=== PATIENT | female | born 1975 | race Caucasian/White ===

== ENCOUNTER 2017-10-16 03:49 | Inpatient (IN) | payer OTHER ==
[2017-10-16] VITALS (8 sets, daily range): BP systolic 91–110; BP diastolic 35–70
[~2017-10-16] VITALS: Ht 167.6 cm; Wt 57.6 kg
[~2017-10-16 03:49] MED LIST: AMOXICILLIN500 MG PO; ANAPROX DS550 MG PO; ATIVAN0.5 MG PO; BENZTROPINE1 MG PO; BRIN10TA PO; CATAFLAM50 MG PO; CELEXA10 MG PO; CELEXA20 MG PO; CIPRO250 MG PO; COGENTIN1 MG PO; DAYPRO600 M1 PO; FLEXERIL10 MG PO; HALDOL1 MG PO; HALDOL2 MG PO; HYDROCODONE BIT1 T11 PO; KEFLEX500 MG PO; MACROBID100 M1 PO; MOTRIN800 MG PO; NKHM PO; NORCO 325 MG-51 TAB PO; PHENERGAN25 M1 PO; PRENATAL1 TA1 PO; PYRIDIUM200 MG PO; ROBAXIN750 MG PO; TOBREX OPHTH S2.5 ML OPH; TOPAMAX50 MG PO; TRAZODONE HCL100 MG PO; ULTRAM50 MG PO; VALIUM10 MG PO; VICODIN 5/500 505 MG PO; VICODIN 500 MG-1 TAB PO; VISTARIL25 M1 PO; Vicodin 5/500 505 MG PO; ZITHROMAX Z PA250 MG PO; [UNRECOGNIZED DRUG - OTHER] PO
[2017-10-16 04:13] LABS: BASO % 0.4 % (0.0-1.0); EOS # 0.1 10*3/uL (0.0-0.4); EOS % 0.7 % (1.0-4.0); HEMATOCRIT 33.6 % (37.0-47.0); HEMOGLOBIN 10.2 g/dl (12.0-16.0); LYMPH # 1.8 10*3/uL (1.3-4.4); LYMPH % 16.9 % (27.0-41.0); MEAN CORPUSCULAR HGB 21.6 pg (27.0-31.0); MEAN CORPUSCULAR HGB CONC 30.4 g/dl (33.0-37.0); MEAN PLATELET VOLUME 10.2 fl (9.6-12.3); MONO # 0.8 10*3/uL (0.1-1.0); MONO % 7.5 % (3.0-9.0); NEUT # 7.8 10*3/uL (2.3-7.9); NEUT % 74.1 % (47.0-73.0); PLATELET COUNT AUTOMATED 174 10*3/uL (130-400); RED BLOOD COUNT 4.73 10*6/uL (4.10-5.10); WHITE BLOOD COUNT 10.5 10*3/uL (4.8-10.8)
[2017-10-16 04:27] LABS: ALBUMIN 3.5 gm/dl (3.1-4.5); ALKALINE PHOSPHATASE 51 U/L (45-117); BUN 9 mg/dl (7-24); CHLORIDE 103 mmol/L (98-107); CREATININE 0.89 mg/dL (0.55-1.02); LIPASE 102 U/L (73-393); POTASSIUM 3.6 mmol/L (3.5-5.1); SGOT/AST 10 IU/L (3-35); SGPT/ALT 14 U/L (12-78); SODIUM 139 mmol/L (136-145); TOTAL PROTEIN 6.9 gm/dL (6.4-8.2); TROPONIN I < 0.015 ng/ml (<0.045)
[2017-10-16 04:31] LABS: INTERNATIONAL NORM RATIO 0.9 (2.0-3.5)
[2017-10-16] MEDS ORDERED: REXULTI3 MG PO (06:20)
[2017-10-16] MEDS ORDERED: WELLBUTRIN XL300 MG PO (06:20)
[2017-10-16] MEDS ORDERED: ATIVAN1 MG PO (06:21)
[2017-10-16 08:48] LABS: BILIRUBIN NEGATIVE (NEGATIVE); BLOOD TRACE-INTACT (NEGATIVE); CLARITY CLEAR (CLEAR); COLOR YELLOW (YELLOW); GLUCOSE NEGATIVE (NEGATIVE); KETONE NEGATIVE (NEGATIVE); LEUKO ESTERASE NEGATIVE (NEGATIVE); NITRITE NEGATIVE (NEGATIVE); SPECIFIC GRAVITY <= 1.005 (1.005-1.030)
[2017-10-16 08:58] LABS: RBC 0-2 rbc/hpf (0-2); WBC 0-2 wbc/hpf (0-5)
[2017-10-16] MEDS ORDERED: TRINTELLIX20 MG PO (10:22)
[2017-10-17] VITALS: BP 122/61
[2017-10-17 07:00] LABS: BASO % 0.3 % (0.0-1.0); EOS % 0.4 % (1.0-4.0); HEMATOCRIT 30.1 % (37.0-47.0); HEMOGLOBIN 9.3 g/dl (12.0-16.0); LYMPH # 1.3 10*3/uL (1.3-4.4); LYMPH % 18.1 % (27.0-41.0); MEAN CELL VOLUME 69.7 fl (81.0-99.0); MEAN CORPUSCULAR HGB 21.5 pg (27.0-31.0); MEAN CORPUSCULAR HGB CONC 30.9 g/dl (33.0-37.0); MEAN PLATELET VOLUME 11.1 fl (9.6-12.3); MONO # 0.7 10*3/uL (0.1-1.0); MONO % 9.5 % (3.0-9.0); NEUT # 5.2 10*3/uL (2.3-7.9); NEUT % 71.2 % (47.0-73.0); PLATELET COUNT AUTOMATED 142 10*3/uL (130-400); RED BLOOD COUNT 4.32 10*6/uL (4.10-5.10); WHITE BLOOD COUNT 7.3 10*3/uL (4.8-10.8)
[2017-10-17 07:14] LABS: BUN 6 mg/dl (7-24); CHLORIDE 108 mmol/L (98-107); CHOLESTEROL 128 mg/dL (<200); CREATININE 0.63 mg/dL (0.55-1.02); IRON 13 ug/dL (50-170); PHOSPHOROUS 3.1 mg/dL (2.5-4.9); POTASSIUM 3.5 mmol/L (3.5-5.1); SODIUM 141 mmol/L (136-145); TOTAL IRON BINDING CAPACITY 372 ug/dl (250-450)
[2017-10-17 07:23] LABS: HDL CHOLESTEROL 46 mg/dl (40-60); LDL CHOLESTEROL 65 mg/dL (9-159); TRIGLYCERIDES 86 mg/dl (<150); VLDL CHOLESTEROL 17 mg/dL (6-40)
[2017-10-17 08:00] VITALS: BP 107/66
[2017-10-17 08:34] LABS: FERRITIN 8.6 ng/mL (10.0-291.0); VITAMIN D, 25-HYDROXY 15.5 ng/mL (30-100)
[2017-10-17 16:00] VITALS: BP 102/57
[2017-10-17 20:00] VITALS: BP 98/60
[2017-10-18] VITALS: BP 90/50
[2017-10-18] MEDS ORDERED: Vitamin D PO (07:57)
[2017-10-18] MEDS ORDERED: FEROSUL325 MG PO (07:57)
[2017-10-18 08:00] VITALS: BP 92/52
[2017-10-18] MEDS ORDERED: XARELTO1 EACH PO (08:03)
[2017-10-18] MEDS ORDERED: XARE20MG PO (08:03)
== END 2017-10-18 10:11 | disposition home or self-care (01) | DRG 176 ==
LOC: ED 03:49 → EDHOLD 06:04 → 4E 06:04
PROVIDERS: Emergency Medicine; Student in an Organized Health Care Education/Training Program
DX: I26.99 Other pulmonary embolism without acute cor pulmonale (principal); I82.409 Acute embolism and thrombosis of unspecified deep veins of unspecified lower extremity; F33.9 Major depressive disorder, recurrent, unspecified; D50.9 Iron deficiency anemia, unspecified; F12.90 Cannabis use, unspecified, uncomplicated; D72.810 Lymphocytopenia; E55.9 Vitamin D deficiency, unspecified; D72.9 Disorder of white blood cells, unspecified; R73.9 Hyperglycemia, unspecified; F41.9 Anxiety disorder, unspecified; R07.1 Chest pain on breathing; R00.1 Bradycardia, unspecified; Z88.8 Allergy status to other drugs, medicaments and biological substances; Z78.9 Other specified health status; Z71.6 Tobacco abuse counseling; Z72.0 Tobacco use; Z79.899 Other long term (current) drug therapy; Z98.51 Tubal ligation status

== ENCOUNTER 2020-07-04 22:25 | Emergency (ER) | payer OTHER ==
[~2020-07-04] VITALS: Ht 167.6 cm; Wt 54.4 kg
[~2020-07-04 22:25] MED LIST changes: +ATIVAN1 MG PO; +FEROSUL325 MG PO; +REXULTI3 MG PO; +TRINTELLIX20 MG PO; +Vitamin D PO; +WELLBUTRIN XL300 MG PO; +XARE20MG PO; +XARELTO1 EACH PO
[2020-07-04 23:27] LABS: BASO % 0.4 % (0.0-1.0); EOS # 0.1 10*3/uL (0.0-0.4); HEMATOCRIT 28.3 % (37.0-47.0); LYMPH # 1.9 10*3/uL (1.3-4.4); LYMPH % 33.9 % (27.0-41.0); MEAN CELL VOLUME 64.3 fl (81.0-99.0); MEAN CORPUSCULAR HGB 19.5 pg (27.0-31.0); MEAN CORPUSCULAR HGB CONC 30.4 g/dl (33.0-37.0); MEAN PLATELET VOLUME 9.5 fl (9.6-12.3); MONO # 0.5 10*3/uL (0.1-1.0); MONO % 9.3 % (3.0-9.0); NEUT # 3.1 10*3/uL (2.3-7.9); NEUT % 54.2 % (47.0-73.0); PLATELET COUNT AUTOMATED 228 10*3/uL (130-400); RED CELL DISTRI WIDTH 18.6 % (0-14.5); WHITE BLOOD COUNT 5.6 10*3/uL (4.8-10.8)
[2020-07-04 23:43] LABS: ALBUMIN 3.2 gm/dl (3.1-4.5); ALKALINE PHOSPHATASE 63 U/L (45-117); BUN 6 mg/dl (7-24); CHLORIDE 103 mmol/L (98-107); CREATININE 0.71 mg/dL (0.55-1.02); POTASSIUM 3.4 mmol/L (3.5-5.1); SGOT/AST 8 IU/L (3-35); SGPT/ALT 16 U/L (12-78); SODIUM 137 mmol/L (136-145); TOTAL PROTEIN 6.6 gm/dL (6.4-8.2)
[2020-07-05] MEDS ORDERED: REXULTI2 MG PO (01:19)
[2020-07-05 07:10] LABS: RETICULOCYTE % 0.58 % (0.50-2.50)
[2020-07-05 07:30] LABS: IRON 12 ug/dL (50-170); TOTAL IRON BINDING CAPACITY 478 ug/dl (250-450)
[2020-07-05] MEDS ORDERED: TYLENOL325 M1 PO (10:25)
[2020-07-05] MEDS ORDERED: IRON325 M3 PO (10:25)
[2020-07-05] MEDS ORDERED: NAPROXEN250 MG PO (10:25)
== END 2020-07-05 10:27 | disposition home or self-care (01) ==
LOC: ED 22:25
PROVIDERS: Emergency Medicine; Student in an Organized Health Care Education/Training Program
DX: M54.6 Pain in thoracic spine (principal); D50.9 Iron deficiency anemia, unspecified; R07.81 Pleurodynia; R06.02 Shortness of breath; F41.9 Anxiety disorder, unspecified; F31.9 Bipolar disorder, unspecified; F17.200 Nicotine dependence, unspecified, uncomplicated; Z79.899 Other long term (current) drug therapy; Z86.711 Personal history of pulmonary embolism; Z98.890 Other specified postprocedural states; Z98.51 Tubal ligation status

== ENCOUNTER 2020-09-03 00:23 | Emergency (ER) | payer OTHER ==
[~2020-09-03 00:23] MED LIST changes: +IRON325 M3 PO; +NAPROXEN250 MG PO; +REXULTI2 MG PO; +TYLENOL325 M1 PO
== END 2020-09-03 01:56 | disposition home or self-care (01) ==
LOC: ED 00:23
DX: S93.491A Sprain of other ligament of right ankle, initial encounter (principal); F12.90 Cannabis use, unspecified, uncomplicated; Z87.891 Personal history of nicotine dependence; Z98.890 Other specified postprocedural states; Z98.51 Tubal ligation status; Z79.899 Other long term (current) drug therapy; X50.1XXA Overexertion from prolonged static or awkward postures, initial encounter; Y93.89 Activity, other specified; Y92.89 Other specified places as the place of occurrence of the external cause; Y99.9 Unspecified external cause status

== ENCOUNTER → 2021-08-17 | Outpatient (CLI) | payer OTHER ==
[2021-08-17 09:50] LABS: BASO # 0.1 10*3/uL (0.0-0.1); BASO % 1.3 % (0.0-1.0); EOS # 0.1 10*3/uL (0.0-0.4); EOS % 1.6 % (1.0-4.0); HEMATOCRIT 26.7 % (37.0-47.0); LYMPH # 1.4 10*3/uL (1.3-4.4); LYMPH % 36.7 % (27.0-41.0); MEAN CELL VOLUME 62.1 fl (81.0-99.0); MEAN CORPUSCULAR HGB 18.1 pg (27.0-31.0); MEAN CORPUSCULAR HGB CONC 29.2 g/dl (33.0-37.0); MEAN PLATELET VOLUME 9.4 fl (9.6-12.3); MONO # 0.4 10*3/uL (0.1-1.0); MONO % 11.5 % (3.0-9.0); NEUT # 1.9 10*3/uL (2.3-7.9); NEUT % 48.6 % (47.0-73.0); PLATELET COUNT AUTOMATED 198 10*3/uL (130-400); RED CELL DISTRI WIDTH 21.4 % (0-14.5); WHITE BLOOD COUNT 3.8 10*3/uL (4.8-10.8)
[2021-08-17 10:27] LABS: CHLORIDE 110 mmol/L (98-107); POTASSIUM 4.1 mmol/L (3.5-5.1); SODIUM 140 mmol/L (136-145)
[2021-08-17 10:43] LABS: ALKALINE PHOSPHATASE 62 U/L (45-117); BUN 6 mg/dl (7-24); CHOLESTEROL 113 mg/dL (<200); CREATININE 0.65 mg/dL (0.55-1.02); LDL CHOLESTEROL 60 mg/dL (9-159); SGOT/AST 12 IU/L (3-35); SGPT/ALT 27 U/L (12-78); TOTAL PROTEIN 6.7 gm/dL (6.4-8.2); TRIGLYCERIDES 44 mg/dl (<150)
== END | disposition home or self-care (01) ==
LOC: LAB 09:30
PROVIDERS: ATTEND Nurse Practitioner
DX: Z51.81 Encounter for therapeutic drug level monitoring (principal); Z79.899 Other long term (current) drug therapy

== ENCOUNTER 2023-11-16 17:25 | Emergency (ER) | payer OTHER ==
[~2023-11-16] VITALS: Ht 152.4 cm; Wt 47.6 kg
[2023-11-16] MEDS ORDERED: BUPRENORPHINE-1 EAC1 SL (18:03)
[2023-11-16 18:33] LABS: BASO % 0.7 % (0.0-1.0); EOS # 0.1 10*3/uL (0.0-0.4); EOS % 1.9 % (1.0-4.0); HEMATOCRIT 35.2 % (37.0-47.0); LYMPH # 1.8 10*3/uL (1.3-4.4); LYMPH % 30.8 % (27.0-41.0); MEAN CELL VOLUME 77.9 fl (81.0-99.0); MEAN CORPUSCULAR HGB 25.2 pg (27.0-31.0); MEAN CORPUSCULAR HGB CONC 32.4 g/dl (33.0-37.0); MONO # 0.5 10*3/uL (0.1-1.0); NEUT # 3.4 10*3/uL (2.3-7.9); NEUT % 58.4 % (47.0-73.0); PLATELET COUNT AUTOMATED 155 10*3/uL (130-400); RED BLOOD COUNT 4.52 10*6/uL (4.10-5.10); RED CELL DISTRI WIDTH 15.1 % (0-14.5); WHITE BLOOD COUNT 5.8 10*3/uL (4.8-10.8)
[2023-11-16 18:51] LABS: ACT PARTIAL THROMBO TIME 28.1 SECONDS (20.0-32.1)
[2023-11-16 19:07] LABS: ALKALINE PHOSPHATASE 68 U/L (46-116); BUN 9 mg/dl (9-23); CHLORIDE 102 mmol/L (98-107); SGPT/ALT 11 U/L (5-49); TOTAL PROTEIN 6.6 gm/dL (6.0-8.0)
== END 2023-11-16 21:20 | disposition home or self-care (01) ==
LOC: ED 17:25
PROVIDERS: Internal Medicine
DX: R10.11 Right upper quadrant pain (principal); R07.89 Other chest pain; F41.9 Anxiety disorder, unspecified; Z79.899 Other long term (current) drug therapy; Z98.890 Other specified postprocedural states; Z98.51 Tubal ligation status; Z87.891 Personal history of nicotine dependence; Z86.711 Personal history of pulmonary embolism

== ENCOUNTER 2024-09-16 22:24 | Emergency (ER) | payer OTHER ==
[~2024-09-16] VITALS: Ht 175.2 cm; Wt 63.5 kg
[~2024-09-16 22:24] MED LIST changes: +BUPRENORPHINE-1 EAC1 SL
[2024-09-17] MEDS ORDERED: Enoxaparin Sodium 100 MG/ML SYR SC SCH ×2 (01:00→10:00)
== END 2024-09-17 00:54 | disposition home or self-care (01) ==
LOC: ED 22:24
DX: M25.561 Pain in right knee (principal); R22.41 Localized swelling, mass and lump, right lower limb; Z86.718 Personal history of other venous thrombosis and embolism; Z79.899 Other long term (current) drug therapy; Z98.890 Other specified postprocedural states; Z87.891 Personal history of nicotine dependence

== ENCOUNTER → 2024-09-17 | Outpatient (CLI) | payer OTHER | END | disposition home or self-care (01) | LOC: US 11:25 | PROVIDERS: ATTEND Internal Medicine | DX: M71.21 Synovial cyst of popliteal space [Baker], right knee (principal) ==

== ENCOUNTER → 2024-10-13 | Outpatient (CLI) | payer OTHER ==
[2024-10-13 10:24] LABS: ACT PARTIAL THROMBO TIME 28.7 SECONDS (20.0-32.1)
[2024-10-15 16:07] LABS: ANTI-THROMBIN III ACTIVITY 103 % (75-135); PROTEIN S - FUNCTIONAL 48 % (63-140)
[2024-10-15 21:06] LABS: LUPUS REFLEX INTERPRETATION Comment: (.); PTT-LA 41.6 sec (0.0-43.5)
== END | disposition home or self-care (01) ==
LOC: LAB 09:08
PROVIDERS: ATTEND Physician Assistant
DX: Z86.711 Personal history of pulmonary embolism (principal)